=== PATIENT | male | born 1990 | race Caucasian/White ===

== ENCOUNTER 2017-08-12 01:31 | Emergency (ER) | payer OTHER ==
[2017-08-12] MEDS ORDERED: HYDROcodone/APAP 5-325MG 1 EACH TAB PO STA (02:25)
[2017-08-12] MEDS ORDERED: ORPHENADRINE 30 MG/ML 2 ML VIAL IM STA (02:25)
[2017-08-12] MEDS ORDERED: KETOROLAC 30 MG/ML 1 ML VIAL IM STA (02:25)
--- NOTE | 2017-08-12 02:58 | XR ---
EXAMINATION TYPE: XR lumbosacral spine min 4V DATE OF EXAM: 08/12/2017 COMPARISON: NONE HISTORY: Back pain TECHNIQUE: 5 views FINDINGS: Vertebra have fairly normal spacing and alignment. Posterior elements are intact. Sacroilia c joints appear normal. There is no compression fracture. IMPRESSION: Negative lumbar spine exam.
--- NOTE | 2017-08-12 03:21 | ED ---
Back Pain HPI - General Chief Complaint: Back Pain/Injury Stated Complaint: Back Pain Time Seen by Provider: 08/12/17 01:49 Source: patient Limitations: no limitations - History of Present Illness Initial Comments: 26-year-old male patient presents to the emergency department today for evaluation of increased lower back pain. Patient states that as a child he did have a fractured sacrum. States he has had chronic pain since then. States that this afternoon around 1:30 he was lifting a boat off of a [place] when he felt a pop in his low back and had increased pain. Patient states the pain is radiating down the left leg. He denies any numbness or tingling to the lower extremities. Denies any loss of bowel or bladder control. Denies any saddle anesthesia. States he has taken ibuprofen and a muscle relaxer for his pain however it is not helping. Patient denies any recent rash, fever, chills, shortness breath, chest pain, abdominal pain, nausea, vomiting, diarrhea, constipation, numbness, tingling, dizziness, weakness, hematuria, dysuria, urinary urgency, urinary frequency, headache, visual changes, or any other complaints. Denies any history of IV drug abuse. - Related Data Previous Rx's Medication Instructions Recorded Acetaminophen-Codeine 300-30mg 1 tab PO Q6H PRN #12 tablet 08/12/17 [Tylenol #3] Cyclobenzaprine [Flexeril] 10 mg PO TID #15 tab 08/12/17 Ibuprofen [Motrin] 600 mg PO Q8HR PRN #30 tab 08/12/17 Allergies Allergy/AdvReac Type Severity Reaction Status Date / Time Penicillins Allergy Rash/Hives Verified 08/12/17 01:43 Review of Systems ROS Statement: Those systems with pertinent positive or pertinent negative responses have been documented in the HPI. ROS Other: All systems not noted in ROS Statement are negative. Past Medical History Past Medical History: No Reported History History of Any Multi-Drug Resistant Organisms: None Reported Past Surgical History: No Surgical Hx Reported Past Psychological History: No Psychological Hx Reported Smoking Status: Former smoker Past Alcohol Use History: None Reported Past Drug Use History: Marijuana General Exam Limitations: no limitations General appearance: alert, in no apparent distress, other (Social well-developed , well-nourished adult male patient in no acute distress. Vital signs upon presentation are temperature 98.2F, pulse 58, respirations 20, blood pressure 128/77, pulse ox 97% on room air.) Eye exam: Present: normal appearance, PERRL, EOMI. Absent: scleral icterus, conjunctival injection, periorbital swelling ENT exam: Present: normal exam, normal oropharynx, mucous membranes moist Respiratory exam: Present: normal lung sounds bilaterally. Absent: respiratory distress, wheezes, rales, rhonchi, stridor Cardiovascular Exam: Present: regular rate, normal rhythm, normal heart sounds. Absent: systolic murmur, diastolic murmur, rubs, gallop, clicks GI/Abdominal exam: Present: soft, normal bowel sounds. Absent: distended, tenderness, guarding, rebound, rigid Back exam: Present: normal inspection. Absent: vertebral tenderness Neurological exam: Present: alert, oriented X3, CN II-XII intact Psychiatric exam: Present: normal affect, normal mood Skin exam: Present: warm, dry, intact, normal color. Absent: rash Course Vital Signs 08/12/17 08/12/17 01:40 03:46 Temperature 98.3 F 97.6 F Pulse Rate 58 L 52 L Respiratory 20 16 Rate Blood Pressure 128/77 123/60 O2 Sat by Pulse 97 97 Oximetry Medical Decision Making - Medical Decision Making 26-year-old male patient presented to the emergency department today for evaluation of his increased chronic low back pain. Physical examination is unremarkable. Patient has good strength in his lower extremities. Neurovascular status is intact. There is no vertebral tenderness noted. He is afebrile. X-ray of the lumbosacral spine was obtained, showed no acute abnormalities. Patient be discharged home with pain medication and muscle relaxers. He is educated regarding ice and heat. He is instructed to follow- up with Dr. Lujan for further evaluation. Return parameters discussed in detail. He verbalizes understanding and agrees with this plan. - Radiology Data Radiology results: report reviewed, image reviewed 5 views of the lumbosacral spine were obtained. Vertebra have fairly normal spacing alignment. Posterior elements are intact. Sacroiliac joints appear normal. There is no compression fracture. Impression by Dr. Rondon shows negative lumbar spine exam. Disposition Clinical Impression: Acute exacerbation of chronic low back pain Disposition: HOME SELF-CARE Condition: Good Instructions: Acute Low Back Pain (ED), Chronic Back Pain (ED) Additional Instructions: Take medications as directed. Follow-up with developmental specialist as soon as possible. Return here immediately for any new, worsening, or concerning symptoms. Prescriptions: Acetaminophen-Codeine 300-30mg [Tylenol #3] 1 tab PO Q6H PRN #12 tablet PRN Reason: Pain Cyclobenzaprine [Flexeril] 10 mg PO TID #15 tab Ibuprofen [Motrin] 600 mg PO Q8HR PRN #30 tab PRN Reason: Pain Is patient prescribed a controlled substance at d/c from ED?: Yes When asked, does pt state using other controlled substances?: No If prescribed controlled substance>3 days was MAPS reviewed?: Prescribed <3 Days If opioid is for acute pain is fill amount 7 days or less?: Yes If Rx opioid, was Start Talking consent form obtained?: Yes Referrals: None,Stated [Primary Care Provider] - 1-2 days Tristan Lujan, [Doctor of Osteopathic Medicine] - 1-2 days Time of Disposition: 03:21
[2017-08-12 03:47] VITALS: BP 123/60; PULSE 52; RESP 16; TEMP 97.6
== END 2017-08-12 03:42 | disposition home or self-care (01) ==
LOC: EC 01:31
DX: M54.5 Low back pain (principal); Z88.0 Allergy status to penicillin; Z87.891 Personal history of nicotine dependence
CPT/HCPCS: 99283; 96372 ×2; 72110; J2360; J1885